=== PATIENT | male | born 1995 | race Caucasian/White ===

== ENCOUNTER 2016-04-22 23:44 | Emergency (ER) | payer OTHER ==
[~2016-04-22] VITALS: Ht 188 cm; Wt 90.7 kg
[~2016-04-22 23:44] MED LIST: AMOXICILLIN500 M2 PO
--- NOTE | 2016-04-22 23:53 | ED HEAD/FACIAL INJ COMPLAINT ---
History of Present Illness General Chief Complaint: Nausea, Vomiting, Diarrhea Stated Complaint: NAUSEOUS AFTER HITTING HEAD Source: patient, EMS Exam Limitations: no limitations Vital Signs & Intake/Output Vital Signs & Intake/Output Vital Signs Date Time Temp Pulse Resp B/P Pulse O2 O2 Flow FiO2 Ox Delivery Rate 04/23 0001 98.2 72 18 117/79 100 Room Air ED Intake and Output 04/23 0000 04/22 1200 Intake Total Output Total Balance Patient 200 lb Weight Allergies Coded Allergies: No Known Allergies (03/07/16) Reconcile Medications Amoxicillin 500 MG CAPSULE 1 TAB PO TID INFECTION Triage Note: PT BIBA FROM WORK. PER PT HE WAS WORKING IN A DARK ROOM, AND HE WALKED INTO A LIGHT FIXTURE. PT NOW COMPLAINS OF NAUSEA AND HAS SMALL LACERATION ABOVE LEFT EYE. Triage Nurses Notes Reviewed? 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 He states he was loading the truck with pallets and was about to record the palate numbers when he turned his head too quickly and hit his right eyebrow onto the metal light. He did not pass out and remembers the whole event. He states he touches for head and it was bleeding which made him a little upset. No loss of consciousness, no confusion blurred vision. On his break a few hours later he ate dinner and vomited times one. No nausea now. He states he feels normal. No blood thinners. When he told his body that he wanted to go home they told him he needed to come to the ER for safety reasons. Currently without any complaints. Tetanus is up-to-date. Past History Medical History Any Pertinent Medical History? see below for history Neurological: NONE EENT: NONE Cardiovascular: NONE Respiratory: NONE Gastrointestinal: NONE Hepatic: NONE Renal: NONE Musculoskeletal: NONE Psychiatric: NONE Endocrine: NONE Surgical History Surgical History: non-contributory Psychosocial History What is your primary language Moroccan Family History Hx Contributory? No Review of Systems Review of Systems Constitutional: Denies: chills, fever. EENTM: Reports: no symptoms. Respiratory: Denies: cough, short of breath, sputum production. Cardiovascular: Denies: chest pain, palpitations. GI: Reports: nausea (RESOLVED), vomiting (X 1). Genitourinary: Reports: no symptoms. Musculoskeletal: Denies: back pain, muscle pain, muscle stiffness, neck pain. Skin: Reports: no symptoms. Neurological/Psychological: Denies: ataxia, confusion, headache. Hematologic/Endocrine: Reports: bleeding. Denies: bruising, polyuria, polydipsia. Immunologic/Allergic: Denies: splenectomy. All Other Systems: Reviewed and Negative Physical Exam Physical Exam General Appearance: well developed/nourished, mild distress Head: 1 CM LAC ON RIGHT EYEBROW Eyes: Bilateral: PERRL, EOMI. Ears, Nose, Throat: normal pharynx, normal ENT inspection, hearing grossly normal Neck: normal inspection, supple Respiratory: normal breath sounds Cardiovascular: regular rate/rhythm Gastrointestinal: soft, non-tender Back: normal inspection Extremities: normal inspection, normal range of motion, no edema Psychiatric: awake, alert, oriented x 3 Cranial Nerves: normal hearing, normal speech, PERRL Coordination/Gait: normal finger to nose, normal gait Motor/Sensory: no motor/sensory deficits Skin: intact, normal color, warm/dry Lymphatic: no anterior cervical gutierrez Progress Differential Diagnosis: ICH, CONCUSSION, LACERATION Plan of Care: Current Medications Sig/Kya Start time Last Medication Dose Stop Time Status Admin Ibuprofen 800 MG ONCE ONE 04/22 2344 UNVr (Motrin) 04/22 2345 No active bleeding from 1 cm right eyebrow laceration. Neurologic exam is intact. No nausea this time. Ibuprofen ordered. Tetanus is up-to-date. Instructions given for concussion. He will follow-up with his doctor in the office as needed. Patient instructed to return for headache, blurry vision, repeat episodes of vomiting. (STEVEN SANTACRUZ,CHRISTOPHER) Departure Departure Time of Disposition: 2350 Disposition: HOME OR SELF CARE Condition: Stable Clinical Impression Primary Impression: Concussion Secondary Impressions: Eyebrow laceration Referrals: UNKNOWN (PCP) Additional Instructions: Take Tylenol or ibuprofen as needed for pain. Follow-up with her doctor in the office. Return to the ER for any headache, blurred vision, vomiting. Departure Forms: Customer Survey General Discharge Information Procedures Laceration/Wound Repair Laceration/Wound Repair: Wound Location: head Wound's Depth, Shape: linear Wound Length (cm): 22 Wound Explored: clean, no foreign body removed Wound Repaired With: [facility] Tetanus Status: up to date
[2016-04-23 00:01] VITALS: BP 117/79
== END 2016-04-23 00:05 ==
LOC: ERH 23:44
DX: S01.111A Laceration without foreign body of right eyelid and periocular area, initial encounter (principal); S06.0X9A Concussion with loss of consciousness of unspecified duration, initial encounter; W22.8XXA Striking against or struck by other objects, initial encounter